=== PATIENT | female | born 1975 | race Caucasian/White ===

== ENCOUNTER → 2017-12-16 | Day surgery (SDC) | payer MEDICARE ==
[~2017-12-16] MED LIST: ACETAMINOPHEN325 M1 PO; ACETYL L-CARNI500 MG PO; ADDERALL 30 MG30 MG PO; BACTRIM DS TAB1 EACH PO; BUPIVACAINE 0.25%/EPI 30ML SDV INJ ONE; BUSPIRONE HCL5 MG PO; CARISOPRODOL350 MG PO; CO Q-10200 MG PO; CYANOCOBAL1000 MCG/M IM; CYANOCOBAL1000 MCG/M INJ; CYMBALTA30 MG PO; D3-5050000 UNIT PO; DEXAMETHASONE SOD PHOS INJ 4 MG/ML VIAL ONE; DHEA25 M1 PO; DIAZEPAM2 MG PO; ESTROGEN PO; FENTANYL CITRATE/PF 100MCG/2 ML INJ ONE; FISH OIL OMEGA1 EACH PO; HYDROCODON-ACE1 EA11 PO; HYDROCORTISONE10 MG PO; KEFLEX500 MG PO; KLONOPIN1 MG PO; KLOR-CON 1010 MEQ PO; LAMOTRIGINE100 MG PO; LIDOCAINE HCL 2% LOCAL INJ 5 ML SDV VIAL INJ ONE; MELATONIN 3 MG1 EACH PO; MIDAZOLAM HCL 2 MG/2 ML VIAL ONE; NORCO 10-325 T1 EACH PO; NORCO 7.5-3251 EACH PO; OMEPRAZOLE40 MG PO; ONDANSETRON HCL INJ 2 MG/ML VIAL ONE; POTASSIUM CHLO10 MEQ PO; PREDNISONE5 MG PO; PROMETHAZINE HC25 M1 PO; PROPOFOL IV EMULSION 10 MG/ML 20 ML VIAL ONE; SAM-E200 MG PO; SEVOFLURANE INHAL SOLN 250 ML PEN BTL ONE; SOMA350 MG PO; TESTOS PO; TYLENOL WITH C1 EACH PO; ULTRAM 50MG50 MG PO; VENOFER200 MG/10 IV; VITAMIN B-122500 MCG SL; XANAX0.5 MG PO; ZINC SULFATE220 MG PO; ZOFRAN ODT4 MG; ZOFRAN ODT4 MG SL; [UNRECOGNIZED DRUG - OTHER]; [UNRECOGNIZED DRUG - OTHER] PO; [UNRECOGNIZED DRUG - OTHER] PO; [UNRECOGNIZED DRUG - OTHER] PO; metanx PEG; vitamin k2 PO
--- OUTSIDE RECORDS SUMMARY | 2017-12-16 09:05 | XMS REPORT ---
Author Author [facility] Address Unknown Phone Unavailable Care Team Providers Care Assistant Teaching Professor Name Role Phone Unavailable Unavailable Problems This patient has no known problems. Allergies, Adverse Reactions, Alerts This patient has no known allergies or adverse reactions. Medications This patient has no known medications. Encounters Start Date/Time End Date/Time Encounter Type Admission Type Attending [facility] Facility Care Department Encounter ID 2017-08-02 00:00:00 2017-08-03 00:00:00 [facility] [id number]
[2017-12-16 09:45] LABS: BASOPHILS % 0.4 % (0.0-1.0); HEMATOCRIT 34.9 % (34.2-44.1); HEMOGLOBIN 11.9 g/dL (12.0-16.0); LYMPHOCYTES # (AUTO) 1.9 (1.0-3.2); LYMPHOCYTES % 35.5 % (18.0-39.1); MEAN CORPUSCULAR HEMOGLOBIN 31.7 pg (28-32); MEAN CORPUSCULAR HGB CONC 34.1 g/dL (31-35); MEAN CORPUSCULAR VOLUME 93.1 fL (81-99); MONOCYTES # (AUTO) 0.3 (0.2-0.8); MONOCYTES % 5.7 % (4.4-11.3); NEUTROPHILS # (AUTO) 3.2 (2.1-6.9); NEUTROPHILS % 58.2 % (38.7-80.0); PLATELET COUNT 236 x10e3/uL (140-360); RED BLOOD COUNT 3.75 x10e6/uL (3.6-5.1); RED CELL DISTRIBUTION WIDTH 12.3 % (11.7-14.4)
[2017-12-16 10:31] LABS: ANION GAP 13.6 mmol/L (8-16); BLOOD UREA NITROGEN 12 mg/dL (7-26); BUN/CREATININE RATIO 13 (6-25); CARBON DIOXIDE 29 mmol/L (22-29); CHLORIDE 104 mmol/L (98-107); CREATININE, SERUM 0.89 mg/dL (0.57-1.11); EST GLOMERULAR FILTRATION RATE > 60 ML/MIN (60-); GLUCOSE 87 mg/dL (74-118); POTASSIUM 3.6 mmol/L (3.5-5.1); SODIUM 143 mmol/L (136-145)
[2017-12-16 12:30] VITALS: BP 135/93
--- NOTE | 2017-12-16 12:53 | Operative Report ---
DATE OF PROCEDURE: December 16, 2017 PREOPERATIVE DIAGNOSIS: Myositis, rule out specific etiology. POSTOPERATIVE DIAGNOSIS: Myositis, rule out specific etiology. OPERATION PERFORMED: Left quadriceps muscle biopsy. ANESTHESIA: General. COMPLICATIONS: None. ESTIMATED BLOOD LOSS: Minimal. DESCRIPTION OF PROCEDURE: With the patient lying in bed in the supine position, under good general anesthesia, the left side was prepped with Betadine solution and draped in the usual manner. The area of the skin was then infiltrated with 1/4 percent Marcaine with epinephrine. Incision was made in the skin and carried down to the fascia. The fascia was opened, and about a 1-inch segment of muscle was removed sharply with minimal handling of the specimen. The specimen was then sent fresh for pathological examination. The whole area was thoroughly irrigated. Perfect hemostasis was ascertained. The fascia was then closed with a running suture of 2-0 Vicryl. Subcutaneous tissue was approximated with 3-0 Vicryl, and the skin was closed with subcuticular 5-0 Vicryl. Benzoin, Steri-Strips and dressings were applied. The sponge, lap and needle count was correct. The patient tolerated the procedure well and returned to the recovery room in stable condition. Job#: [id number]
== END | disposition home or self-care (01) ==
LOC: OR 09:02
PROVIDERS: ATTEND Surgery
DX: M60.9 Myositis, unspecified (principal); Z88.5 Allergy status to narcotic agent
CPT/HCPCS: 20205; 36415; 80048; 85025; 93005; J1100; J2001; J2250; J2405; J2704

== ENCOUNTER → 2019-11-24 | Day surgery (SDC) | payer MEDICARE, OTHER ==
[2019-11-20 14:33] LABS: BASOPHILS % 0.4 % (0.0-1.0); HEMATOCRIT 34.1 % (34.2-44.1); HEMOGLOBIN 11.4 g/dL (12.0-16.0); LYMPHOCYTES # (AUTO) 1.8 (1.0-3.2); LYMPHOCYTES % 39.2 % (18.0-39.1); MEAN CORPUSCULAR HEMOGLOBIN 30.6 pg (28-32); MEAN CORPUSCULAR HGB CONC 33.4 g/dL (31-35); MEAN CORPUSCULAR VOLUME 91.4 fL (81-99); MONOCYTES # (AUTO) 0.3 (0.2-0.8); NEUTROPHILS # (AUTO) 2.4 (2.1-6.9); NEUTROPHILS % 54.4 % (38.7-80.0); PLATELET COUNT 235 x10e3/uL (140-360); RED BLOOD COUNT 3.73 x10e6/uL (3.6-5.1); RED CELL DISTRIBUTION WIDTH 11.9 % (11.7-14.4)
[2019-11-20 14:56] LABS: ALANINE AMINOTRANSFERASE 19 IU/L (0-55); ALBUMIN 4.5 g/dL (3.5-5.0); ALBUMIN/GLOBULIN RATIO 1.6 (0.8-2.0); ALKALINE PHOSPHATASE 75 IU/L (40-150); ANION GAP 11.3 mmol/L (8-16); BLOOD UREA NITROGEN 9 mg/dL (7-26); BUN/CREATININE RATIO 10 (6-25); CALCIUM 9.6 mg/dL (8.4-10.2); CARBON DIOXIDE 31 mmol/L (22-29); CHLORIDE 103 mmol/L (98-107); CREATININE, SERUM 0.89 mg/dL (0.57-1.11); EST GLOMERULAR FILTRATION RATE > 60 ML/MIN (60-); GLUCOSE 85 mg/dL (74-118); POTASSIUM 4.3 mmol/L (3.5-5.1); SODIUM 141 mmol/L (136-145)
[~2019-11-24] MED LIST changes: -BUPIVACAINE 0.25%/EPI 30ML SDV INJ ONE; +BUPIVACAINE HCL 0.5% INJ 30 ML VIAL INJ ONE; +CEFAZOLIN SOD 1 GM/NS 50ML 100 ML IV ONE; +GLYCOPYRROLATE INJ 0.2 MG/ML VIAL ONE; +NEOSTIGMINE 1 MG/ML 10ML VIAL ONE; -ONDANSETRON HCL INJ 2 MG/ML VIAL ONE; +ONDANSETRON HCL INJ 2MG/ML 2ML 2 MG/ML VIAL ONE; +ROCURONIUM BROMIDE 10 MG/ML 5ML VIAL IV ONE; +SYNTHROID50 MCG PO; +TRAMADOL HCL 50 MG TAB ONE
[2019-11-24 13:05] VITALS: BP 112/75
== END | disposition home or self-care (01) ==
LOC: OR 09:12
PROVIDERS: ATTEND Surgery
DX: K81.1 Chronic cholecystitis (principal); E06.3 Autoimmune thyroiditis; E27.1 Primary adrenocortical insufficiency; R12 Heartburn; F41.9 Anxiety disorder, unspecified; F32.9 Major depressive disorder, single episode, unspecified; Z88.6 Allergy status to analgesic agent; Z01.812 Encounter for preprocedural laboratory examination; Z11.59 Encounter for screening for other viral diseases
CPT/HCPCS: 36415; 47562; 80053; 85025; 88304; J0690; J1100; J2001; J2250; J2405; J2704; J2710; J3010; U0002